=== PATIENT | female | born 1985 | race African-American/Black ===

== ENCOUNTER 2018-04-21 11:36 | Emergency (ER) | payer OTHER ==
[~2018-04-21] VITALS: Ht 154.9 cm; Wt 63.5 kg
[2018-04-21 11:48] VITALS: BP 132/60
[2018-04-21] MEDS ORDERED: TESSALON PERLE100 MG PO (12:42)
== END 2018-04-21 12:57 | disposition home or self-care (01) ==
LOC: ER 11:36
DX: J06.9 Acute upper respiratory infection, unspecified (principal); R07.89 Other chest pain; F17.210 Nicotine dependence, cigarettes, uncomplicated